=== PATIENT | female | born 1955 | race Caucasian/White ===

== ENCOUNTER → 2016-09-05 | Outpatient (CLI) | payer BC ==
[~2016-09-05] MED LIST: BECL8.7A6 IH; CHOL500016 PO; CYCL10TA2 PO; DICL112S2 TP; ESTR42.53 VG; IOHEXOL 180 MG/ML 10 ML VIAL. ONE; LEVO112T4 PO; LISI-334 PO; LORA10CA PO; MELA3TAB PO; MULT1TAB52 PO; NORT10CA PO; OMEP20CA9 PO; PROAIR HFA8.5 GM INH; TRAM50TA PO; [UNRECOGNIZED DRUG - OTHER]; [UNRECOGNIZED DRUG - OTHER]; [UNRECOGNIZED DRUG - OTHER]; hormones; lidocaine patch; methylPREDNISolone ACETATE 40 MG/ML VIAL. ONE; methylPREDNISolone ACETATE 80 MG/ML VIAL. ONE
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
== END | disposition home or self-care (01) ==
LOC: PNCL 09:16
PROVIDERS: ATTEND Anesthesiology
DX: M50.123 Cervical disc disorder at C6-C7 level with radiculopathy (principal); I10 Essential (primary) hypertension; M19.90 Unspecified osteoarthritis, unspecified site; E03.9 Hypothyroidism, unspecified; K21.9 Gastro-esophageal reflux disease without esophagitis; J45.909 Unspecified asthma, uncomplicated; Z80.3 Family history of malignant neoplasm of breast
CPT/HCPCS: 62321; J1030; J1040

== ENCOUNTER → 2016-09-19 | Outpatient (CLI) | payer BC ==
--- NOTE | 2016-09-20 00:01 | PN ---
DATE: 09/19/2016 DIAGNOSES: Cervical radiculopathy with cervical degenerative disk disease and cervicalgia. HISTORY OF PRESENT ILLNESS: The patient is a 61-year-old female who returns for followup status post cervical epidural steroid injection x 1. The patient reports about 50% improvement after the first injection in the neck and upper extremities, still some pain in the right greater than the left side, but much better intensities decreased to the pain. She also has some aching in the upper arms and tenderness in the shoulders, but overall doing much better. She is very pleased with the progress. The patient reports the pain is 4-5 on a scale of 10, worse in the morning, but sleeping better at night and doing daily activities much greater ease and comfort. The patient reports no new motor or sensory deficits or other complaints. PHYSICAL EXAMINATION: VITAL SIGNS: The patient's blood pressure 131/71, pulse 74, respirations 18, temperature 98.2 degrees Fahrenheit, height is 5 feet 2 inches, weight is 208 pounds. GENERAL: The patient is awake, alert, oriented, appropriate, very pleasant demeanor. HEENT: Head shows normocephalic, atraumatic. Extraocular movements are intact and symmetrical. Oral cavity, mucous membranes are moist and pink. Dentition is intact. NECK: Shows anterior throat supple without palpable lymphadenopathy noted. Swallow reflex is symmetrical. CHEST: Shows normal on inspection. Breath sounds clear to auscultation bilaterally. HEART: Shows S1, S2 clear. ABDOMEN: Obese, soft, nontender, nondistended. No palpable organomegaly is noted. No rebound or guarding demonstrated. BACK: Shows spine grossly midline. Cervical paraspinous musculature shows some moderate tenderness with palpation bilaterally in the inferior aspect of the cervical paraspinous muscles, but only diffusely without radiation, without asymmetry, no tenderness over the spinous processes. The patient does show good rotation motion of cervical spine with some minor tenderness with extension, but good rotation right and left lateral past 45 degrees without significant pain and full forward flexion without pain as well. EXTREMITIES: Upper extremities showed deep tendon reflexes 1+ in the biceps and triceps tendons. Motor exam is approximately 4 on a scale of 5, but equal with ballet dancer strength, biceps and triceps flexion. Peripheral pulses are 2+ in the radial distribution and equal. Options were discussed with the patient and the patient's old chart was reviewed as her current medication regimen updated. Current review of systems updated today as well. We will proceed with a second cervical epidural steroid injection today with fluoroscopic guidance. Risks were again discussed including, but not limited to bleeding, infection, possibility of epidural hematoma, subsequent neurologic compromise, dural puncture, headaches, spinal cord and/or nerve damage, side effects of steroid medication and poor results regarding pain control. The patient understands and wishes to proceed. The patient will return to clinic in approximately 2 weeks for followup. He was counseled to return appointment, activity level and side effects to be aware of. DIAGNOSIS: Cervical radiculopathy with cervical degenerative disk disease and cervicalgia. PROCEDURE: Cervical epidural steroid injection using fluoroscopic guidance, a translaminar approach at C6-C7 level using local anesthetic under sterile prep and drape. Medications injection, 120 mg Depo-Medrol plus 5 mL of ____ normal saline and 2 mL of Isovue contrast. CONDITION AT DISCHARGE: Stable. The patient tolerated procedure well without complications. JAKE FRANCO MD DR: ABDIEL/emmanuelle JOB#: [id number] / [id number]
== END | disposition home or self-care (01) ==
LOC: PNCL 08:47
PROVIDERS: ATTEND Anesthesiology
DX: M50.123 Cervical disc disorder at C6-C7 level with radiculopathy (principal)
CPT/HCPCS: 62321; J1030; J1040

== ENCOUNTER → 2016-10-03 | Outpatient (CLI) | payer BC ==
[~2016-10-03] MED LIST changes: -IOHEXOL 180 MG/ML 10 ML VIAL. ONE; -methylPREDNISolone ACETATE 40 MG/ML VIAL. ONE; -methylPREDNISolone ACETATE 80 MG/ML VIAL. ONE
--- NOTE | 2016-10-03 10:50 | PAIN ---
DATE OF SERVICE: 10/03/2016 PROGRESS NOTE DIAGNOSES: Cervical radiculopathy with cervical degenerative disk disease and cervicalgia. HISTORY OF PRESENT ILLNESS: The patient is a 61-year-old female, who returns for followup status post cervical epidural steroid injection x 2. The patient reports about ____ improvement in the base of her neck and shoulders, again right worse than left in the upper extremities, but doing much better. She has less of a sharp, achy pain is now just aching ____ sharp and stabbing much better in the right shoulder, still some tenderness and sometimes left is worse than the right, but the pain is becoming more in the left arm noticeable been in the right shoulder is getting better. The patient reports still some stiffness in the neck, but she is sleeping much better at night, increasing her activity with greater ease and comfortable to perform more activities of daily living with greater comfort and ability as well. The patient reports no new motor or sensory deficits or other complaints. PHYSICAL EXAMINATION: VITAL SIGNS: Shows blood pressure 134/82, pulse 73, respirations are 18, temperature is 98.2 degrees Fahrenheit, height is 5 feet 2 inches, weight is 208 pounds. GENERAL: The patient is awake, alert, oriented, appropriate, very pleasant demeanor. HEENT: Head is normocephalic, atraumatic. Extraocular movements are intact and symmetrical. Oral cavity shows mucous membranes moist and pink. Dentition is intact. NECK: Shows anterior throat supple without palpable lymphadenopathy noted. Swallow reflex is symmetrical. CHEST: Shows normal on inspection. Breath sounds are clear to auscultation bilaterally. HEART: Shows S1 and S2 clear. ABDOMEN: Soft, nontender, nondistended. No palpable organomegaly is noted. No rebound or guarding demonstrated. BACK: Shows spine grossly midline, cervical paraspinous muscle shows some mild tenderness with palpation, but only mildly in the middle and lower cervical paraspinous musculature as well as superior medial trapezius, slightly more tender on the left than the right. On inspection today and palpation today, but without radiation, without trigger points, without asymmetry. EXTREMITIES: Upper extremities showed deep tendon reflexes at 1+ in the biceps and triceps tendons. Motor exam is strong with outreach counselor strength rated at 4 on a scale of 5 and symmetrical left and right as well as biceps and triceps flexion about 4/5 and again symmetrical and equal. Options were discussed with the patient and the patient's old chart was reviewed as her current medication regimen updated. Current review of systems updated today as well. We will proceed with a third cervical epidural steroid injection today with fluoroscopic guidance. Risks were again discussed including, but not limited to bleeding, infection, possibility of epidural hematoma, subsequent neurological compromise, dural puncture, headaches, spinal cord and/or nerve damage, side effects of steroid medication and poor results regarding pain control. The patient understands and wishes to proceed. The patient will return to clinic in approximately 2 weeks for followup or as necessary, would like to call for next appointment, I encouraged her to follow up with Physical Therapy as well. She has had some cervical decompression with her chiropractic provider, she reports it as well. She will follow up with this also. The patient was counseled on activity levels and side effects to be aware of. DIAGNOSES: Cervical radiculopathy with cervical degenerative disk disease and cervicalgia. PROCEDURE: Cervical epidural steroid injection in translaminar approach at C6-C7 levels using C-arm fluoroscopic guidance under sterile prep and drape using local anesthetic. Medication injected 120 mg Depo-Medrol plus 5 mL with preservative-free normal saline and 2 mL of Isovue for contrast. CONDITION AT DISCHARGE: Stable. The patient tolerated procedure well, had no complications. JAKE FRANCO MD DR: ABDIEL/emmanuelle JOB#: [id number] / [id number]
== END | disposition home or self-care (01) ==
LOC: PNCL 08:48
PROVIDERS: ATTEND Anesthesiology
DX: M50.123 Cervical disc disorder at C6-C7 level with radiculopathy (principal)
CPT/HCPCS: 62321

== ENCOUNTER → 2017-04-08 | Outpatient (CLI) | payer BC ==
[~2017-04-08] MED LIST changes: +GADOBUTROL 10 MMOL/10 ML VIAL IV ONE; -MELA3TAB PO; +MELA3TAB2 PO
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
== END | disposition home or self-care (01) ==
LOC: KCIC MRI 09:01
PROVIDERS: ATTEND Chiropractor
DX: H53.8 Other visual disturbances (principal); I78.1 Nevus, non-neoplastic; G43.909 Migraine, unspecified, not intractable, without status migrainosus; R42 Dizziness and giddiness
CPT/HCPCS: 70553; A9585

== ENCOUNTER → 2017-04-29 | Outpatient (CLI) | payer BC, OTHER ==
[~2017-04-29] MED LIST changes: -GADOBUTROL 10 MMOL/10 ML VIAL IV ONE
--- NOTE | 2017-04-29 12:34 | RAD ---
MRA of the brain without contrast 04/29/2017 Clinical History: Headaches and photophobia. The patient had a recent MRI of the brain which demonstrated prominent flow void in the left middle cerebral artery near the trifurcation. A MRA was recommended for further evaluation. Technique: Using 3-D time of flight techniques, a MRA of the major arterial structures surrounding the [place] was performed. Findings: Comparison is made to patient's MRI of the brain dated 04/08/2017. MRA images of the anterior and posterior circulations are within normal limits. No area of stenosis or occlusion is seen. No intracranial aneurysm is seen. Impression: Negative study. Electronically signed by: Francisco Olvera MD (04/29/2017 12:28 PM) [id number]
== END | disposition home or self-care (01) ==
LOC: MRI 10:10
PROVIDERS: ATTEND General Practice
DX: H53.419 Scotoma involving central area, unspecified eye (principal); R90.89 Other abnormal findings on diagnostic imaging of central nervous system; R51 Headache; Z87.828 Personal history of other (healed) physical injury and trauma
CPT/HCPCS: 70544

== ENCOUNTER → 2017-08-21 | Outpatient (CLI) | payer BC, OTHER | END | disposition home or self-care (01) | LOC: PMGWOUND 10:25 | DX: H53.149 Visual discomfort, unspecified (principal); G43.909 Migraine, unspecified, not intractable, without status migrainosus; R42 Dizziness and giddiness; I10 Essential (primary) hypertension; E03.9 Hypothyroidism, unspecified; J45.909 Unspecified asthma, uncomplicated; Z90.710 Acquired absence of both cervix and uterus; Z87.820 Personal history of traumatic brain injury | CPT/HCPCS: 99201; 99203; 99211 ==

== ENCOUNTER → 2017-08-27 | Outpatient (CLI) | payer BC, OTHER ==
[2017-08-27] MEDS: GADOBUTROL 10 MMOL/10 ML VIAL IV ×2 (11:37)
== END | disposition home or self-care (01) ==
LOC: KCIC MRI 10:23
DX: R42 Dizziness and giddiness (principal); R41.3 Other amnesia; R51 Headache
CPT/HCPCS: 70553; A9585

== ENCOUNTER → 2018-03-02 | Outpatient (CLI) | payer BC ==
[~2018-03-02] MED LIST changes: +TRAZ-85 PO
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
== END | disposition home or self-care (01) ==
LOC: KCIC MRI 10:26
PROVIDERS: ATTEND Family Medicine Sports Medicine
DX: M48.02 Spinal stenosis, cervical region (principal); M50.323 Other cervical disc degeneration at C6-C7 level; M47.892 Other spondylosis, cervical region; M25.78 Osteophyte, vertebrae; I10 Essential (primary) hypertension; E03.9 Hypothyroidism, unspecified; K21.9 Gastro-esophageal reflux disease without esophagitis; M19.90 Unspecified osteoarthritis, unspecified site
CPT/HCPCS: 72141

== ENCOUNTER → 2018-10-27 | Outpatient (CLI) | payer BC ==
[~2018-10-27] MED LIST changes: +ALBU2.5V8 INH; +IOHEXOL 300 MG/ML 100ML VIAL. IV ONE; +OMEP20CA10 PO; -OMEP20CA9 PO; -PROAIR HFA8.5 GM INH; +TRAZ-118 PO; -TRAZ-85 PO
--- NOTE | 2018-10-27 17:32 | KCIC ---
CT temporal bone without and with contrast Indication: Vestibular dysfunction, vertigo, unsteady gait Technique: Pre and postcontrast CT imaging was performed of the temporal bone, multiplanar reconstruction images submitted. One or more of the following individualized dose reduction techniques were utilized for this examination: 1. Automated exposure control 2. Adjustment of the mA and/or kV according to patient size 3. Use of iterative reconstruction technique. Comparison: MRI brain exam 08/27/2017 Findings: There is [id number] residual left sphenoid sinus mucosal thickening although improved aeration in interval. Mastoid air cells are aerated, no focal bone destruction identified. Visualized ossicles are intact. No significant nodular enhancement is identified of the cerebellopontine angles or the internal auditory canals. There is no asymmetric density of the middle ear cavities. The external auditory canals are patent bilaterally. IMPRESSION: 1. There is residual although decreased left sphenoid sinus mucosal thickening. No other significant abnormality is identified. Electronically signed by: Mazin Velasquez MD (10/27/2018 5:29 PM) [id number]
== END | disposition home or self-care (01) ==
LOC: KCIC CT 09:56
PROVIDERS: ATTEND Family Medicine Sports Medicine
DX: H83.2X9 Labyrinthine dysfunction, unspecified ear (principal); J34.89 Other specified disorders of nose and nasal sinuses; R42 Dizziness and giddiness; R26.9 Unspecified abnormalities of gait and mobility
CPT/HCPCS: 70482; Q9967